=== PATIENT | female | born 1995 | race Caucasian/White ===

== ENCOUNTER 2020-05-21 15:04 | Inpatient (IN) | payer MEDICARE, MEDICAID ==
[~2020-05-21] VITALS: Ht 165.1 cm; Wt 46.0 kg
--- NOTE | 2020-05-21 15:05 | NUR ---
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
--- NOTE | 2020-05-21 15:30 | NUR ---
pt altered and moaning. dry-heaving and gagging intermittently, no vomiting
[2020-05-21 15:37] LABS: MEAN CORPUSCULAR HEMOGLOBIN 27.5 pg (27.0-34.8); MEAN CORPUSCULAR HGB CONC 30.5 g/dL (32.4-35.8); MEAN PLATELET VOLUME 11.7 fL (7.4-10.4); PLATELET COUNT 406 x10^3/uL (130-400); RED BLOOD COUNT 3.88 x10^6/uL (3.82-5.3); RED CELL DISTRIBUTION WIDTH 13.8 % (9.6-15.2)
[2020-05-21 15:41] LABS: PH, VENOUS 6.804 pH (7.320-7.420)
[2020-05-21 15:43] LABS: MD YES
[2020-05-21 15:46] LABS: ALANINE AMINOTRANSFERASE 20 U/L (12-78); ALBUMIN 1.9 g/dL (3.4-5.0); CHLORIDE 106 mmol/L (98-107); CREATININE 2.41 mg/dL (0.55-1.02)
[2020-05-21 15:49] LABS: ALKALINE PHOSPHATASE 138 U/L (45-117); ANION GAP 25 mmol/L (5-15); BILIRUBIN,TOTAL 0.3 mg/dL (0.2-1.0); TOTAL PROTEIN 5.1 g/dL (6.4-8.2)
--- NOTE | 2020-05-21 15:53 | NUR ---
Dr Ag at bedside for eval
[2020-05-21 15:59] LABS: ACETONE, SERUM Large (80mg/dL) (Negative)
[2020-05-21] MEDS ORDERED: LABETALOL 5MG/ML, 20ML IVPush PRN ×2 (16:00→22:00)
[2020-05-21] MEDS ORDERED: PANTOPRAZOLE 40 MG IV IVPush SCH (16:00)
[2020-05-21] MEDS ORDERED: PROMETHAZINE 25 MG/ML, 1ML IM PRN (16:00)
[2020-05-21] MEDS ORDERED: PANTOPRAZOLE 40 MG IV ONE (16:23)
[2020-05-21] MEDS ORDERED: ONDANSETRON 2MG/ML, 2ML ONE (16:23)
[2020-05-21] MEDS ORDERED: METRONIDAZOLE PMX 500MG/100ML 100 ML ONE (16:23)
[2020-05-21 16:27] LABS: BAND#(MANUAL) 5.05 x10^3/uL; BANDS%(MANUAL) 12 % (0-7); LYMPH#(MANUAL) 1.68 x10^3/uL (1-3.4); LYMPHS% (MANUAL) 4 % (22-44); METAMYELOCYTES# (MANUAL) 1.26 x10^3/uL (0-0); METAMYELOCYTES% (MANUAL) 3 % (0-1); MONOS#(MANUAL) 1.26 x10^3/uL (0.3-2.7); MONOS% (MANUAL) 3 % (2-9); MYELOCYTES# (MANUAL) 0.42 x10^3/uL (0-0); MYELOCYTES% (MANUAL) 1 % (0-0); SEG#(MANUAL) 32.42 x10^3/uL (1.8-6.8); SEGS% (MANUAL) 77 % (42-75)
--- NOTE | 2020-05-21 16:30 | NUR ---
multiple attempts have been made at bedside by multiple staff members for lab draw as well as peripheral IV placement no vomiting
[2020-05-21 16:31] LABS: ANISOCYTOSIS 1+
[2020-05-21] MEDS: ONDANSETRON 2MG/ML, 2ML IV PRN ×2 (16:32→20:40)
[2020-05-21 16:33] LABS: <PLATELET ESTIMATE> INCREASED
[2020-05-21] MEDS: METRONIDAZOLE PMX 500MG/100ML 100 ML IV SCH ×2 (16:35→21:17)
[2020-05-21 16:38] LABS: LARGE PLATELETS 1+; PMNS WITH VACUOLES 1+
[2020-05-21 16:48] LABS: PAPPENHEIMER BODIES 1+
--- NOTE | 2020-05-21 16:48 | NUR ---
Radiologist at bedside for PICC placement
[2020-05-21 17:02] LABS: FREE T4 (FREE THYROXINE) 0.57 ng/dL (0.76-1.46)
--- NOTE | 2020-05-21 17:05 | NUR ---
post placement x-ray has bene to bedside. PIC line ok to use per Dr. Fritz at bedside
[2020-05-21] MEDS: REGULAR INSULIN 100 UNITS in SODIUM CHLORIDE 0.9% 99 ML IV PRN (17:19)
--- NOTE | 2020-05-21 17:21 | NUR ---
insulin gtt has been initiated per order
--- NOTE | 2020-05-21 17:21 | NUR ---
pt mother at bedside
--- NOTE | 2020-05-21 17:27 | NUR ---
admit orders have been recieved with bed assignment, attempting to call report
[2020-05-21 17:42] LABS: ESTIMATED AVERAGE GLUCOSE 355 mg/dL (0-126)
--- NOTE | 2020-05-21 17:42 | NUR ---
flagyl infusing on admit
--- NOTE | 2020-05-21 17:43 | NUR ---
report has been called to Kamille BRANDT pt to [facility] via umer with RNgisele and director cardiac
[2020-05-21] MEDS ORDERED: SODIUM BICARBONATE 1 MEQ/ML, 50ML VIAL IVPush ONE (18:00)
[2020-05-21 18:38] VITALS: BP 148/91
[2020-05-21] MEDS: ESOMEPRAZOLE 40 MG IV IVPush SCH (19:54)
[2020-05-21] MEDS: NYSTATIN 500,000 UNITS/5 ML UDC PO SCH ×2 (20:19→20:22)
[2020-05-21] MEDS: ERGOCALCIFEROL 50,000 UNIT CAPSULE PO SCH (20:19)
[2020-05-21] MEDS: SODIUM CHLORIDE 0.9% 1,000 ML IV SCH (20:19)
[2020-05-21] MEDS: D5%-0.45NACL+KCL 20MEQ 1,000 ML IV SCH (20:19)
[2020-05-21 20:31] LABS: ANION GAP 22 mmol/L (5-15); CALCIUM 7.2 mg/dL (8.5-10.1); CHLORIDE 112 mmol/L (98-107); CREATININE 2.69 mg/dL (0.55-1.02)
[2020-05-21] MEDS ORDERED: POTASSIUM CHLORIDE 40 MEQ in SODIUM CHLORIDE 0.9% 100 ML IV ONE (21:00)
[2020-05-21] MEDS ORDERED: SODIUM CHLORIDE 0.9% 1,000 ML IV ONE ×2 (22:00→23:00)
[2020-05-22] MEDS: SODIUM CHLORIDE 0.9% 1,000 ML IV SCH (00:16)
[2020-05-22 00:45] LABS: CALCIUM 6.8 mg/dL (8.5-10.1); CHLORIDE 124 mmol/L (98-107); CREATININE 2.29 mg/dL (0.55-1.02)
[2020-05-22 00:52] LABS: ANION GAP 15 mmol/L (5-15)
[2020-05-22] MEDS: D5%-0.45NACL+KCL 20MEQ 1,000 ML IV SCH ×2 (01:12→04:47)
[2020-05-22] MEDS ORDERED: POTASSIUM CHLORIDE 40 MEQ in SODIUM CHLORIDE 0.9% 100 ML IV ONE ×2 (01:30→05:30)
[2020-05-22] MEDS: REGULAR INSULIN 100 UNITS in SODIUM CHLORIDE 0.9% 99 ML IV PRN ×2 (04:23→22:44)
[2020-05-22 04:34] LABS: CALCIUM 7.4 mg/dL (8.5-10.1); CHLORIDE 128 mmol/L (98-107); CREATININE 2.47 mg/dL (0.55-1.02)
[2020-05-22 04:43] LABS: ANION GAP 9 mmol/L (5-15)
[2020-05-22] MEDS: METRONIDAZOLE PMX 500MG/100ML 100 ML IV SCH ×4 (04:47→21:39)
[2020-05-22] MEDS ORDERED: POTASSIUM PHOSPHATE 44 MEQ in SODIUM CHLORIDE 0.9% 500 ML IV ONE (06:30)
[2020-05-22] MEDS ORDERED: MAGNESIUM SULFATE PMX 2GM/50ML 50 ML IV ONE (06:30)
[2020-05-22] MEDS: ESOMEPRAZOLE 40 MG IV IVPush SCH ×2 (06:32→17:57)
[2020-05-22] MEDS: NYSTATIN 500,000 UNITS/5 ML UDC PO SCH ×4 (06:33→20:17)
[2020-05-22] MEDS: ONDANSETRON 2MG/ML, 2ML IV PRN (08:09)
[2020-05-22 08:55] LABS: MEAN CORPUSCULAR HEMOGLOBIN 28.2 pg (27.0-34.8); MEAN CORPUSCULAR HGB CONC 34.3 g/dL (32.4-35.8); MEAN PLATELET VOLUME 10.6 fL (7.4-10.4); PLATELET COUNT 305 x10^3/uL (130-400); RED BLOOD COUNT 3.27 x10^6/uL (3.82-5.3); RED CELL DISTRIBUTION WIDTH 13.7 % (9.6-15.2)
[2020-05-22] MEDS ORDERED: CHOLESTYRAMINE LIGHT 4GM PACKET PO SCH (09:00)
[2020-05-22] MEDS ORDERED: THIAMINE 200 MG in SODIUM CHLORIDE 0.9% 50 ML IV SCH (09:00)
[2020-05-22 09:06] LABS: ANION GAP 7 mmol/L (5-15); CALCIUM 7.6 mg/dL (8.5-10.1); CHLORIDE 130 mmol/L (98-107); CREATININE 2.35 mg/dL (0.55-1.02)
[2020-05-22 09:28] LABS: MD YES
[2020-05-22 09:29] LABS: BAND#(MANUAL) 3.56 x10^3/uL; BANDS%(MANUAL) 14 % (0-7); LYMPH#(MANUAL) 1.78 x10^3/uL (1-3.4); LYMPHS% (MANUAL) 7 % (22-44); MONOS#(MANUAL) 1.27 x10^3/uL (0.3-2.7); MONOS% (MANUAL) 5 % (2-9); SEGS% (MANUAL) 74 % (42-75)
[2020-05-22 09:30] LABS: <PLATELET ESTIMATE> ADEQUATE; <RBC MORPHOLOGY> NORMAL; LARGE PLATELETS 1+
[2020-05-22] MEDS ORDERED: POTASSIUM CHLORIDE 20 MEQ PACKET ONE (09:38)
[2020-05-22] MEDS ORDERED: LORazepam 2 MG/ML, 1ML ONE (10:09)
[2020-05-22] MEDS ORDERED: TPN PER PHARMACY MC PRN (10:30)
[2020-05-22] MEDS ORDERED: LORazepam 2 MG/ML, 1ML IVPush ONE (10:30)
[2020-05-22] MEDS: D5%-0.45% NACL 1,000 ML IV SCH ×2 (11:55→20:17)
[2020-05-22] MEDS: KSCALE TO 4.5 IV SCH ×2 (12:05→18:00)
[2020-05-22 13:33] LABS: ANION GAP 7 mmol/L (5-15); CALCIUM 7.3 mg/dL (8.5-10.1); CHLORIDE 129 mmol/L (98-107); CREATININE 2.11 mg/dL (0.55-1.02)
[2020-05-22 15:16] LABS: MICROSCOPIC INDICATED
[2020-05-22 15:40] LABS: OCCULT BLOOD POSITIVE (NEGATIVE)
[2020-05-22] MEDS: CEFTRIAXONE PMX 2GM/50ML 50 ML IVPB SCH (16:29)
[2020-05-22] MEDS ORDERED: SMOF TPN IV SCH (17:00)
[2020-05-22] MEDS ORDERED: DEXTROSE 10% 500 ML IV PRN (17:00)
[2020-05-22] MEDS ORDERED: [UNRECOGNIZED DRUG - OTHER] IV SCH (17:00)
[2020-05-22] MEDS ORDERED: AMINO ACID 10% IV SCH (17:00)
[2020-05-22] MEDS ORDERED: FAT EMUL IV SCH (17:00)
[2020-05-22] MEDS ORDERED: DEXTROSE 70% IV SCH (17:00)
[2020-05-22] MEDS ORDERED: DEXTROSE 50%, 50ML SYRINGE IVPush PRN (17:00)
[2020-05-22] MEDS: FILTER, DISP 1.2 MICRON FOR TPN/PVN IV PRN (17:56)
[2020-05-22] MEDS: MORPHINE SULFATE 4 MG/ML, 1ML IVPush PRN (17:57)
[2020-05-22 19:40] LABS: ANION GAP 8 mmol/L (5-15); CALCIUM 7.1 mg/dL (8.5-10.1); CHLORIDE 128 mmol/L (98-107); CREATININE 2.17 mg/dL (0.55-1.02)
[2020-05-23 00:24] LABS: ANION GAP 7 mmol/L (5-15); CHLORIDE 126 mmol/L (98-107)
[2020-05-23 00:25] LABS: CREATININE 2.16 mg/dL (0.55-1.02)
[2020-05-23] MEDS: KSCALE TO 4.5 IV SCH ×4 (00:58→19:00)
[2020-05-23] MEDS ORDERED: POTASSIUM CHLORIDE 40 MEQ in SODIUM CHLORIDE 0.9% 100 ML IV ONE ×2 (01:00→11:00)
[2020-05-23] MEDS ORDERED: morphine SULFATE 10 MG/ML, 1ML ONE (01:24)
[2020-05-23] MEDS: D5%-0.45% NACL 1,000 ML IV SCH (04:31)
[2020-05-23 04:47] LABS: BASOPHILS % (AUTO) 0 % (0-1); EOSINOPHILS % (AUTO) 0 % (1-7); LYMPHOCYTES % (AUTO) 13 % (22-44); MEAN CORPUSCULAR HGB CONC 34.4 g/dL (32.4-35.8); MEAN PLATELET VOLUME 10.2 fL (7.4-10.4); MONOCYTES % (AUTO) 6 % (2-9); NEUTROPHILS % (AUTO) 81 % (42-75); PLATELET COUNT 252 x10^3/uL (130-400); RED BLOOD COUNT 3.05 x10^6/uL (3.82-5.3); RED CELL DISTRIBUTION WIDTH 13.6 % (9.6-15.2)
[2020-05-23 04:53] LABS: ANION GAP 7 mmol/L (5-15); CALCIUM 7.2 mg/dL (8.5-10.1); CHLORIDE 125 mmol/L (98-107); CREATININE 1.98 mg/dL (0.55-1.02)
[2020-05-23] MEDS: ESOMEPRAZOLE 40 MG IV IVPush SCH ×2 (05:51→17:16)
[2020-05-23] MEDS: NYSTATIN 500,000 UNITS/5 ML UDC PO SCH ×4 (05:51→21:37)
[2020-05-23 05:53] LABS: MD SCAN
[2020-05-23] MEDS: METRONIDAZOLE PMX 500MG/100ML 100 ML IV SCH ×4 (05:55→21:38)
[2020-05-23] MEDS ORDERED: POTASSIUM PHOSPHATE 44 MEQ in SODIUM CHLORIDE 0.9% 500 ML IV ONE (07:00)
[2020-05-23 09:12] LABS: ALANINE AMINOTRANSFERASE 16 U/L (12-78); ALBUMIN 1.7 g/dL (3.4-5.0); ANION GAP 11 mmol/L (5-15); CHLORIDE 124 mmol/L (98-107); CREATININE 1.96 mg/dL (0.55-1.02)
[2020-05-23 09:17] LABS: ALKALINE PHOSPHATASE 90 U/L (45-117); BILIRUBIN,TOTAL 0.2 mg/dL (0.2-1.0); PREALBUMIN 9.9 mg/dL (20.0-40.0); TOTAL PROTEIN 4.4 g/dL (6.4-8.2); TRIGLYCERIDES 65 mg/dL (50-200)
[2020-05-23] MEDS ORDERED: D5%-0.45% NACL 1,000 ML IV SCH (09:30)
[2020-05-23 13:36] LABS: ANION GAP 8 mmol/L (5-15); CALCIUM 6.7 mg/dL (8.5-10.1); CHLORIDE 125 mmol/L (98-107); CREATININE 1.89 mg/dL (0.55-1.02)
[2020-05-23] MEDS ORDERED: POTASSIUM CHLORIDE PMX 100 ML IV ONE ×2 (14:30→20:00)
[2020-05-23] MEDS ORDERED: NALOXONE 1 MG/ML, 2ML ONE (14:38)
[2020-05-23] MEDS ORDERED: FLUMAZENIL 0.1 MG/1 ML, 5ML ONE (14:38)
[2020-05-23] MEDS ORDERED: MIDAZOLAM 1 MG/ML, 5ML ONE (14:38)
[2020-05-23] MEDS ORDERED: FENTANYL PF 100 MCG/2ML ONE (14:38)
[2020-05-23] MEDS ORDERED: LIDOCAINE 1%, 20ML ONE (14:43)
[2020-05-23] MEDS: HEPARIN 5,000 UNITS/ML, 1ML SQ SCH ×2 (15:57→21:38)
[2020-05-23] MEDS: REGULAR INSULIN 100 UNITS in SODIUM CHLORIDE 0.9% 99 ML IV PRN (16:41)
[2020-05-23] MEDS ORDERED: [UNRECOGNIZED DRUG - OTHER] IV SCH (17:00)
[2020-05-23] MEDS ORDERED: SMOF TPN IV SCH (17:00)
[2020-05-23] MEDS ORDERED: DEXTROSE 70% IV SCH (17:00)
[2020-05-23] MEDS ORDERED: FAT EMUL IV SCH (17:00)
[2020-05-23] MEDS ORDERED: AMINO ACID 10% IV SCH (17:00)
[2020-05-23] MEDS: FILTER, DISP 1.2 MICRON FOR TPN/PVN IV PRN (17:15)
[2020-05-23] MEDS: CEFTRIAXONE PMX 2GM/50ML 50 ML IVPB SCH (17:16)
[2020-05-23 19:23] LABS: ANION GAP 10 mmol/L (5-15); CALCIUM 6.8 mg/dL (8.5-10.1); CHLORIDE 126 mmol/L (98-107)
[2020-05-23] MEDS ORDERED: MIRT15TA94 PO (21:01)
[2020-05-23] MEDS ORDERED: MIRTAZAPINE 15 MG TABLET PO SCH (21:30)
[2020-05-24] MEDS: KSCALE TO 4.5 IV SCH ×4 (01:00→19:00)
[2020-05-24 01:31] LABS: ANION GAP 9 mmol/L (5-15); CHLORIDE 125 mmol/L (98-107); CREATININE 1.51 mg/dL (0.55-1.02)
[2020-05-24] MEDS ORDERED: POTASSIUM PHOSPHATE 22 MEQ in SODIUM CHLORIDE 0.9% 500 ML IV ONE (02:00)
[2020-05-24] MEDS: ONDANSETRON 2MG/ML, 2ML IV PRN ×3 (02:01→20:33)
[2020-05-24] MEDS ORDERED: POTASSIUM CHLORIDE PMX 100 ML IV ONE ×2 (02:30→14:00)
[2020-05-24] MEDS: METRONIDAZOLE PMX 500MG/100ML 100 ML IV SCH ×4 (04:53→21:59)
[2020-05-24] MEDS: HEPARIN 5,000 UNITS/ML, 1ML SQ SCH ×2 (06:00→16:14)
[2020-05-24] MEDS: NYSTATIN 500,000 UNITS/5 ML UDC PO SCH ×4 (06:00→21:59)
[2020-05-24] MEDS: ESOMEPRAZOLE 40 MG IV IVPush SCH ×2 (06:00→17:28)
[2020-05-24 06:44] LABS: BASOPHILS % (AUTO) 0 % (0-1); EOSINOPHILS % (AUTO) 1 % (1-7); LYMPHOCYTES % (AUTO) 32 % (22-44); MEAN CORPUSCULAR HEMOGLOBIN 28.3 pg (27.0-34.8); MEAN CORPUSCULAR HGB CONC 34.1 g/dL (32.4-35.8); MEAN PLATELET VOLUME 10.3 fL (7.4-10.4); MONOCYTES % (AUTO) 7 % (2-9); NEUTROPHILS % (AUTO) 60 % (42-75); PLATELET COUNT 220 x10^3/uL (130-400); RED BLOOD COUNT 2.85 x10^6/uL (3.82-5.3)
[2020-05-24 06:45] LABS: MD NO
[2020-05-24 06:54] LABS: ANION GAP 12 mmol/L (5-15); CALCIUM 7.1 mg/dL (8.5-10.1); CHLORIDE 121 mmol/L (98-107); CREATININE 1.47 mg/dL (0.55-1.02)
[2020-05-24 11:36] LABS: ACETONE, SERUM Small (20mg/dL) (Negative)
[2020-05-24 13:47] LABS: ANION GAP 11 mmol/L (5-15); CALCIUM 7.2 mg/dL (8.5-10.1); CHLORIDE 120 mmol/L (98-107); CREATININE 1.59 mg/dL (0.55-1.02)
[2020-05-24] MEDS ORDERED: MAGNESIUM SULFATE PMX 2GM/50ML 50 ML IV ONE (14:30)
[2020-05-24] MEDS: REGULAR INSULIN 100 UNITS in SODIUM CHLORIDE 0.9% 99 ML IV PRN (16:15)
[2020-05-24] MEDS ORDERED: [UNRECOGNIZED DRUG - OTHER] IV SCH (17:00)
[2020-05-24] MEDS ORDERED: FAT EMUL IV SCH (17:00)
[2020-05-24] MEDS ORDERED: AMINO ACID 10% IV SCH (17:00)
[2020-05-24] MEDS ORDERED: FILTER, DISP 1.2 MICRON FOR TPN/PVN IV PRN (17:00)
[2020-05-24] MEDS ORDERED: SMOF TPN IV SCH (17:00)
[2020-05-24] MEDS ORDERED: DEXTROSE 70% IV SCH (17:00)
[2020-05-24] MEDS: CEFTRIAXONE PMX 2GM/50ML 50 ML IVPB SCH (17:28)
[2020-05-24 19:01] LABS: ANION GAP 9 mmol/L (5-15); CALCIUM 7.4 mg/dL (8.5-10.1); CHLORIDE 119 mmol/L (98-107); CREATININE 1.35 mg/dL (0.55-1.02)
[2020-05-24] MEDS: SODIUM BICARBONATE 650 MG TABLET PO SCH (21:59)
[2020-05-24] MEDS: MIRTAZAPINE 30 MG TAB.RAPDIS PO PRN (22:01)
[2020-05-25] MEDS: HEPARIN 5,000 UNITS/ML, 1ML SQ SCH ×3 (00:57→17:38)
[2020-05-25] MEDS: KSCALE TO 4.5 IV SCH ×2 (01:00→07:00)
[2020-05-25 02:01] LABS: ANION GAP 8 mmol/L (5-15); CALCIUM 7.6 mg/dL (8.5-10.1); CHLORIDE 120 mmol/L (98-107); CREATININE 1.39 mg/dL (0.55-1.02)
[2020-05-25] MEDS: METRONIDAZOLE PMX 500MG/100ML 100 ML IV SCH ×2 (04:02→09:15)
[2020-05-25] MEDS: NYSTATIN 500,000 UNITS/5 ML UDC PO SCH ×4 (05:21→19:53)
[2020-05-25] MEDS: ESOMEPRAZOLE 40 MG IV IVPush SCH ×2 (05:21→17:58)
[2020-05-25] MEDS: MORPHINE SULFATE 4 MG/ML, 1ML IVPush PRN (05:22)
[2020-05-25 06:22] LABS: BASOPHILS % (AUTO) 0 % (0-1); EOSINOPHILS % (AUTO) 1 % (1-7); LYMPHOCYTES % (AUTO) 35 % (22-44); MEAN CORPUSCULAR HEMOGLOBIN 28.6 pg (27.0-34.8); MEAN PLATELET VOLUME 10.2 fL (7.4-10.4); MONOCYTES % (AUTO) 7 % (2-9); NEUTROPHILS % (AUTO) 56 % (42-75); PLATELET COUNT 236 x10^3/uL (130-400); RED BLOOD COUNT 3.02 x10^6/uL (3.82-5.3); RED CELL DISTRIBUTION WIDTH 14.8 % (9.6-15.2)
[2020-05-25 06:42] LABS: ACETONE, SERUM Moderate(40mg/dL) (Negative); MD SCAN
[2020-05-25] MEDS ORDERED: AMLODIPINE 5 MG TABLET PO SCH (09:00)
[2020-05-25] MEDS: SODIUM BICARBONATE 650 MG TABLET PO SCH ×2 (09:11→19:54)
[2020-05-25] MEDS ORDERED: INSULIN REGULAR HIGH DOSE Q6H X 48HRS SQ-INSULIN SCH ×2 (10:00→20:00)
[2020-05-25] MEDS ORDERED: DEXTROSE 4 GM TAB.CHEW PO PRN (10:00)
[2020-05-25] MEDS ORDERED: INSULIN GLARGINE 100 UNITS/ML, PEN SQ-INSULIN ONE (10:00)
[2020-05-25] MEDS ORDERED: GLUCAGON 1 MG IM PRN (10:00)
[2020-05-25] MEDS: INSULIN LISPRO 100 UNITS/ML, PEN SQ-INSULIN SCH ×4 (10:10→22:00)
[2020-05-25] MEDS ORDERED: CALCIUM GLUCONATE 13.8 MEQ in SODIUM CHLORIDE 0.9% 100 ML IV ONE (11:00)
[2020-05-25] MEDS: ONDANSETRON 2MG/ML, 2ML IV PRN (11:19)
[2020-05-25] MEDS ORDERED: AMINO ACID 10% IV SCH (17:00)
[2020-05-25] MEDS ORDERED: FAT EMUL IV SCH (17:00)
[2020-05-25] MEDS ORDERED: [UNRECOGNIZED DRUG - OTHER] IV SCH (17:00)
[2020-05-25] MEDS ORDERED: FILTER, DISP 1.2 MICRON FOR TPN/PVN IV PRN (17:00)
[2020-05-25] MEDS ORDERED: DEXTROSE 70% IV SCH (17:00)
[2020-05-25] MEDS ORDERED: SMOF TPN IV SCH (17:00)
[2020-05-25] MEDS ORDERED: cloniDINE 0.1MG PATCH TD SCH (17:00)
[2020-05-25] MEDS ORDERED: INSULIN REGULAR 100 UNITS/ML, 3ML VIAL SQ-INSULIN ONE (18:00)
[2020-05-25] MEDS: PANCRELIPASE 24,000 CAPSULE.DR PO SCH (18:16)
[2020-05-25] MEDS: SODIUM CHLORIDE FLUSH 10ML SYR IVF SCH (19:54)
[2020-05-25 21:21] LABS: ANION GAP 10 mmol/L (5-15); CALCIUM 8.3 mg/dL (8.5-10.1); CHLORIDE 111 mmol/L (98-107); CREATININE 1.71 mg/dL (0.55-1.02)
[2020-05-25] MEDS ORDERED: SODIUM CHLORIDE 0.9% 1,000ML IVBOLUS ONE ×2 (21:30)
[2020-05-25] MEDS: MIRTAZAPINE 30 MG TAB.RAPDIS PO PRN (22:34)
[2020-05-26] MEDS: ONDANSETRON 2MG/ML, 2ML IV PRN (00:47)
[2020-05-26] MEDS: INSULIN LISPRO 100 UNITS/ML, PEN SQ-INSULIN SCH ×7 (01:54→23:43)
[2020-05-26] MEDS: NYSTATIN 500,000 UNITS/5 ML UDC PO SCH ×4 (06:11→20:32)
[2020-05-26] MEDS: ESOMEPRAZOLE 40 MG IV IVPush SCH ×2 (06:11→17:05)
[2020-05-26 06:40] LABS: BASOPHILS % (AUTO) 1 % (0-1); EOSINOPHILS % (AUTO) 1 % (1-7); LYMPHOCYTES % (AUTO) 24 % (22-44); MEAN CORPUSCULAR HEMOGLOBIN 28.3 pg (27.0-34.8); MEAN CORPUSCULAR HGB CONC 34.2 g/dL (32.4-35.8); MEAN PLATELET VOLUME 10.9 fL (7.4-10.4); MONOCYTES % (AUTO) 8 % (2-9); NEUTROPHILS % (AUTO) 66 % (42-75); PLATELET COUNT 245 x10^3/uL (130-400); RED BLOOD COUNT 2.76 x10^6/uL (3.82-5.3); RED CELL DISTRIBUTION WIDTH 15.2 % (9.6-15.2)
[2020-05-26 07:13] LABS: MD SCAN
[2020-05-26 07:32] LABS: ANION GAP 7 mmol/L (5-15); CALCIUM 7.7 mg/dL (8.5-10.1); CHLORIDE 117 mmol/L (98-107); CREATININE 1.45 mg/dL (0.55-1.02)
[2020-05-26] MEDS: PANCRELIPASE 24,000 CAPSULE.DR PO SCH ×3 (09:05→17:04)
[2020-05-26] MEDS: HEPARIN 5,000 UNITS/ML, 1ML SQ SCH ×3 (09:05→17:05)
[2020-05-26] MEDS: SODIUM CHLORIDE FLUSH 10ML SYR IVF SCH ×2 (09:06→20:32)
[2020-05-26] MEDS: SODIUM BICARBONATE 650 MG TABLET PO SCH ×2 (09:06→20:31)
[2020-05-26] MEDS ORDERED: CALCIUM GLUCONATE 13.8 MEQ in SODIUM CHLORIDE 0.9% 100 ML IV ONE (10:00)
[2020-05-26] MEDS: IRON SUCROSE COMPLEX 100MG/5ML IV SCH (12:34)
[2020-05-26] MEDS ORDERED: [UNRECOGNIZED DRUG - OTHER] IV SCH (17:00)
[2020-05-26] MEDS ORDERED: FAT EMUL IV SCH (17:00)
[2020-05-26] MEDS ORDERED: SMOF TPN IV SCH (17:00)
[2020-05-26] MEDS ORDERED: DEXTROSE 70% IV SCH (17:00)
[2020-05-26] MEDS ORDERED: AMINO ACID 10% IV SCH (17:00)
[2020-05-26] MEDS: FILTER, DISP 1.2 MICRON FOR TPN/PVN IV PRN (17:05)
[2020-05-26 20:16] VITALS: BP 116/81
[2020-05-26] MEDS: MIRTAZAPINE 30 MG TAB.RAPDIS PO PRN (22:17)
[2020-05-27] MEDS: HEPARIN 5,000 UNITS/ML, 1ML SQ SCH ×4 (00:20→23:17)
[2020-05-27 01:12] VITALS: BP 118/82
[2020-05-27] MEDS: INSULIN LISPRO 100 UNITS/ML, PEN SQ-INSULIN SCH ×6 (03:00→23:18)
[2020-05-27] MEDS: ESOMEPRAZOLE 40 MG IV IVPush SCH ×2 (05:07→17:31)
[2020-05-27] MEDS: NYSTATIN 500,000 UNITS/5 ML UDC PO SCH ×4 (05:07→20:48)
[2020-05-27 05:29] LABS: MEAN CORPUSCULAR HEMOGLOBIN 28.4 pg (27.0-34.8); MEAN CORPUSCULAR HGB CONC 33.6 g/dL (32.4-35.8); MEAN PLATELET VOLUME 9.8 fL (7.4-10.4); PLATELET COUNT 282 x10^3/uL (130-400); RED BLOOD COUNT 2.75 x10^6/uL (3.82-5.3); RED CELL DISTRIBUTION WIDTH 15.2 % (9.6-15.2)
[2020-05-27 05:39] LABS: ANION GAP 5 mmol/L (5-15); CALCIUM 8.1 mg/dL (8.5-10.1); CHLORIDE 115 mmol/L (98-107); CREATININE 1.54 mg/dL (0.55-1.02)
[2020-05-27 05:55] LABS: MD YES
[2020-05-27 05:57] LABS: BAND#(MANUAL) 0.46 x10^3/uL; BANDS%(MANUAL) 3 % (0-7); EOS#(MANUAL) 0.46 x10^3/uL (0.0-0.4); EOS% (MANUAL) 3 % (1-7); LYMPH#(MANUAL) 6.08 x10^3/uL (1-3.4); LYMPHS% (MANUAL) 40 % (22-44); METAMYELOCYTES% (MANUAL) 2 % (0-1); MONOS#(MANUAL) 0.46 x10^3/uL (0.3-2.7); MONOS% (MANUAL) 3 % (2-9); MYELOCYTES% (MANUAL) 2 % (0-0); POLYCHROMASIA 1+; SEG#(MANUAL) 7.14 x10^3/uL (1.8-6.8); SEGS% (MANUAL) 47 % (42-75)
[2020-05-27 05:58] LABS: SMUDGE CELLS 1+
[2020-05-27 06:01] LABS: OVALOCYTES 1+
[2020-05-27 06:03] LABS: <PLATELET ESTIMATE> ADEQUATE; <PLT MORPHOLOGY> NORMAL PLT MORPH
[2020-05-27] MEDS: PANCRELIPASE 24,000 CAPSULE.DR PO SCH ×3 (07:25→15:47)
[2020-05-27 07:30] VITALS: BP 106/71
[2020-05-27] MEDS: SODIUM BICARBONATE 650 MG TABLET PO SCH ×2 (08:06→20:48)
[2020-05-27] MEDS: IRON SUCROSE COMPLEX 100MG/5ML IV SCH (08:06)
[2020-05-27] MEDS: SODIUM CHLORIDE FLUSH 10ML SYR IVF SCH ×2 (08:07→20:48)
[2020-05-27 13:40] VITALS: BP 109/72
[2020-05-27] MEDS ORDERED: DEXTROSE 70% IV SCH (17:00)
[2020-05-27] MEDS ORDERED: FAT EMUL IV SCH (17:00)
[2020-05-27] MEDS ORDERED: AMINO ACID 10% IV SCH (17:00)
[2020-05-27] MEDS ORDERED: SMOF TPN IV SCH (17:00)
[2020-05-27] MEDS ORDERED: [UNRECOGNIZED DRUG - OTHER] IV SCH (17:00)
[2020-05-27] MEDS: FILTER, DISP 1.2 MICRON FOR TPN/PVN IV PRN (17:37)
[2020-05-27 18:44] VITALS: BP 111/74
[2020-05-27 19:59] VITALS: BP 119/80
[2020-05-27] MEDS: MIRTAZAPINE 30 MG TAB.RAPDIS PO PRN (20:48)
[2020-05-28 02:03] VITALS: BP 116/71
[2020-05-28] MEDS: INSULIN LISPRO 100 UNITS/ML, PEN SQ-INSULIN SCH ×6 (03:00→23:00)
[2020-05-28] MEDS: NYSTATIN 500,000 UNITS/5 ML UDC PO SCH ×4 (05:27→20:45)
[2020-05-28] MEDS: ESOMEPRAZOLE 40 MG IV IVPush SCH ×2 (05:28→18:00)
[2020-05-28 05:46] LABS: MEAN CORPUSCULAR HEMOGLOBIN 28.7 pg (27.0-34.8); MEAN CORPUSCULAR HGB CONC 33.4 g/dL (32.4-35.8); MEAN PLATELET VOLUME 9.7 fL (7.4-10.4); PLATELET COUNT 370 x10^3/uL (130-400); RED BLOOD COUNT 2.83 x10^6/uL (3.82-5.3)
[2020-05-28 05:55] LABS: ANION GAP 8 mmol/L (5-15); CALCIUM 8.4 mg/dL (8.5-10.1); CHLORIDE 109 mmol/L (98-107); CREATININE 1.57 mg/dL (0.55-1.02)
[2020-05-28 06:18] LABS: MD YES
[2020-05-28 06:21] LABS: BAND#(MANUAL) 0.18 x10^3/uL; BANDS%(MANUAL) 1 % (0-7); LYMPH#(MANUAL) 4.12 x10^3/uL (1-3.4); LYMPHS% (MANUAL) 23 % (22-44); METAMYELOCYTES# (MANUAL) 1.25 x10^3/uL (0-0); METAMYELOCYTES% (MANUAL) 7 % (0-1); MONOS% (MANUAL) 5 % (2-9); SEG#(MANUAL) 11.46 x10^3/uL (1.8-6.8); SEGS% (MANUAL) 64 % (42-75)
[2020-05-28 06:22] LABS: <PLATELET ESTIMATE> ADEQUATE; <PLT MORPHOLOGY> NORMAL PLT MORPH; ANISOCYTOSIS 1+; POLYCHROMASIA 1+
[2020-05-28 06:24] LABS: OVALOCYTES 1+
[2020-05-28 07:09] VITALS: BP 104/71
[2020-05-28] MEDS: SODIUM BICARBONATE 650 MG TABLET PO SCH ×2 (07:51→20:45)
[2020-05-28] MEDS: PANCRELIPASE 24,000 CAPSULE.DR PO SCH ×3 (07:51→16:10)
[2020-05-28] MEDS: HEPARIN 5,000 UNITS/ML, 1ML SQ SCH ×3 (07:51→23:45)
[2020-05-28] MEDS: SODIUM CHLORIDE FLUSH 10ML SYR IVF SCH ×2 (07:52→20:46)
[2020-05-28] MEDS: IRON SUCROSE COMPLEX 100MG/5ML IV SCH (07:52)
[2020-05-28] MEDS ORDERED: INSULIN REGULAR HIGH DOSE QDAY SQ-INSULIN SCH (09:00)
[2020-05-28] MEDS: LOPERAMIDE 2 MG CAPSULE PO PRN ×2 (09:22→15:05)
[2020-05-28] MEDS ORDERED: INSULIN LISPRO 100 UNITS/ML, PEN SQ-INSULIN STA ×2 (12:38→13:04)
[2020-05-28 12:50] VITALS: BP 114/76
[2020-05-28] MEDS: ACETAMINOPHEN 325 MG TABLET PO PRN (13:13)
[2020-05-28] MEDS ORDERED: DEXTROSE 70% IV SCH (17:00)
[2020-05-28] MEDS ORDERED: [UNRECOGNIZED DRUG - OTHER] IV SCH (17:00)
[2020-05-28] MEDS ORDERED: AMINO ACID 10% IV SCH (17:00)
[2020-05-28] MEDS ORDERED: FAT EMUL IV SCH (17:00)
[2020-05-28] MEDS ORDERED: SMOF TPN IV SCH (17:00)
[2020-05-28] MEDS: ERGOCALCIFEROL 50,000 UNIT CAPSULE PO SCH (18:38)
[2020-05-28] MEDS: MIRTAZAPINE 30 MG TAB.RAPDIS PO PRN (20:45)
[2020-05-28 21:15] VITALS: BP 116/77
[2020-05-28 22:01] VITALS: BP 106/72
[2020-05-29 00:59] VITALS: BP 108/72
[2020-05-29 02:28] VITALS: BP 108/72
[2020-05-29] MEDS: INSULIN LISPRO 100 UNITS/ML, PEN SQ-INSULIN SCH ×6 (03:00→22:51)
[2020-05-29] MEDS: NYSTATIN 500,000 UNITS/5 ML UDC PO SCH ×4 (05:11→20:15)
[2020-05-29 05:34] LABS: MEAN CORPUSCULAR HEMOGLOBIN 29.8 pg (27.0-34.8); MEAN CORPUSCULAR HGB CONC 33.7 g/dL (32.4-35.8); MEAN PLATELET VOLUME 9.9 fL (7.4-10.4); PLATELET COUNT 450 x10^3/uL (130-400); RED BLOOD COUNT 2.81 x10^6/uL (3.82-5.3); RED CELL DISTRIBUTION WIDTH 15.6 % (9.6-15.2)
[2020-05-29 05:42] LABS: ALANINE AMINOTRANSFERASE 26 U/L (12-78); ANION GAP 9 mmol/L (5-15); CALCIUM 8.7 mg/dL (8.5-10.1); CHLORIDE 110 mmol/L (98-107); CREATININE 1.85 mg/dL (0.55-1.02); TRIGLYCERIDES 350 mg/dL (50-200)
[2020-05-29 05:47] LABS: ALKALINE PHOSPHATASE 99 U/L (45-117); BILIRUBIN,TOTAL 0.2 mg/dL (0.2-1.0); TOTAL PROTEIN 5.8 g/dL (6.4-8.2)
[2020-05-29 06:04] LABS: MD YES
[2020-05-29 06:06] LABS: ANISOCYTOSIS 1+; LYMPH#(MANUAL) 7.48 x10^3/uL (1-3.4); LYMPHS% (MANUAL) 29 % (22-44); METAMYELOCYTES# (MANUAL) 1.29 x10^3/uL (0-0); METAMYELOCYTES% (MANUAL) 5 % (0-1); MONOS#(MANUAL) 2.06 x10^3/uL (0.3-2.7); MONOS% (MANUAL) 8 % (2-9); MYELOCYTES# (MANUAL) 0.77 x10^3/uL (0-0); MYELOCYTES% (MANUAL) 3 % (0-0); POLYCHROMASIA 1+; SEG#(MANUAL) 14.19 x10^3/uL (1.8-6.8); SEGS% (MANUAL) 55 % (42-75)
[2020-05-29 06:07] LABS: <PLATELET ESTIMATE> INCREASED; <PLT MORPHOLOGY> NORMAL PLT MORPH
[2020-05-29] MEDS: ESOMEPRAZOLE 40 MG IV IVPush SCH ×2 (06:18→17:39)
[2020-05-29 06:48] VITALS: BP 98/62
[2020-05-29] MEDS: HEPARIN 5,000 UNITS/ML, 1ML SQ SCH ×2 (07:55→16:23)
[2020-05-29] MEDS: PANCRELIPASE 24,000 CAPSULE.DR PO SCH ×3 (07:55→16:23)
[2020-05-29] MEDS: IRON SUCROSE COMPLEX 100MG/5ML IV SCH (07:56)
[2020-05-29] MEDS: SODIUM BICARBONATE 650 MG TABLET PO SCH ×2 (07:56→20:15)
[2020-05-29] MEDS: LOPERAMIDE 2 MG CAPSULE PO PRN ×4 (07:56→20:15)
[2020-05-29] MEDS: SODIUM CHLORIDE FLUSH 10ML SYR IVF SCH ×2 (08:00→20:15)
[2020-05-29] MEDS: ACETAMINOPHEN 325 MG TABLET PO PRN (09:56)
[2020-05-29] MEDS: INSULIN GLARGINE 100 UNITS/ML, PEN SQ-INSULIN SCH (12:29)
[2020-05-29 14:10] VITALS: BP 98/67
[2020-05-29] MEDS ORDERED: AMINO ACID 10% IV SCH ×2 (17:00)
[2020-05-29] MEDS ORDERED: FAT EMUL IV SCH ×2 (17:00)
[2020-05-29] MEDS ORDERED: DEXTROSE 70% IV SCH ×2 (17:00)
[2020-05-29] MEDS ORDERED: [UNRECOGNIZED DRUG - OTHER] IV SCH ×2 (17:00)
[2020-05-29] MEDS ORDERED: SMOF TPN IV SCH ×2 (17:00)
[2020-05-29 20:11] VITALS: BP 118/78
[2020-05-30] MEDS: HEPARIN 5,000 UNITS/ML, 1ML SQ SCH ×3 (00:33→18:40)
[2020-05-30 00:35] VITALS: BP 108/68
[2020-05-30] MEDS: INSULIN LISPRO 100 UNITS/ML, PEN SQ-INSULIN SCH ×6 (03:08→23:00)
[2020-05-30] MEDS: LOPERAMIDE 2 MG CAPSULE PO PRN ×5 (03:08→20:12)
[2020-05-30 03:43] LABS: ANION GAP 7 mmol/L (5-15); CALCIUM 8.6 mg/dL (8.5-10.1); CHLORIDE 111 mmol/L (98-107); CREATININE 1.63 mg/dL (0.55-1.02)
[2020-05-30] MEDS: NYSTATIN 500,000 UNITS/5 ML UDC PO SCH ×4 (06:26→20:12)
[2020-05-30] MEDS: ESOMEPRAZOLE 40 MG IV IVPush SCH ×2 (06:26→18:04)
[2020-05-30] MEDS: PANCRELIPASE 24,000 CAPSULE.DR PO SCH ×3 (06:26→15:32)
[2020-05-30 06:50] VITALS: BP_SYST 113; BP_SYST 121; BP_DIAS 70; BP_DIAS 73
[2020-05-30] MEDS: IRON SUCROSE COMPLEX 100MG/5ML IV SCH (08:50)
[2020-05-30] MEDS: INSULIN GLARGINE 100 UNITS/ML, PEN SQ-INSULIN SCH (08:51)
[2020-05-30] MEDS: SODIUM CHLORIDE FLUSH 10ML SYR IVF SCH ×2 (08:52→20:12)
[2020-05-30] MEDS: SODIUM BICARBONATE 650 MG TABLET PO SCH ×2 (08:52→20:12)
[2020-05-30 12:58] VITALS: BP 105/73
[2020-05-30 16:41] LABS: CLOSTRIDIUM DIFFICILE ANTIGEN NEGATIVE; CLOSTRIDIUM DIFFICILE TOXIN NEGATIVE (Negative)
[2020-05-30] MEDS ORDERED: DEXTROSE 70% IV SCH (17:00)
[2020-05-30] MEDS ORDERED: AMINO ACID 10% IV SCH (17:00)
[2020-05-30] MEDS ORDERED: SMOF TPN IV SCH (17:00)
[2020-05-30] MEDS ORDERED: [UNRECOGNIZED DRUG - OTHER] IV SCH (17:00)
[2020-05-30] MEDS ORDERED: FAT EMUL IV SCH (17:00)
[2020-05-30 19:01] VITALS: BP 96/65
[2020-05-31 01:29] VITALS: BP 113/76
[2020-05-31] MEDS: INSULIN LISPRO 100 UNITS/ML, PEN SQ-INSULIN SCH ×6 (02:47→22:54)
[2020-05-31] MEDS: LOPERAMIDE 2 MG CAPSULE PO PRN (02:48)
[2020-05-31] MEDS: HEPARIN 5,000 UNITS/ML, 1ML SQ SCH ×3 (02:48→18:44)
[2020-05-31 03:11] LABS: MEAN CORPUSCULAR HEMOGLOBIN 29.8 pg (27.0-34.8); MEAN CORPUSCULAR HGB CONC 32.6 g/dL (32.4-35.8); MEAN PLATELET VOLUME 8.9 fL (7.4-10.4); PLATELET COUNT 456 x10^3/uL (130-400); RED BLOOD COUNT 2.77 x10^6/uL (3.82-5.3); RED CELL DISTRIBUTION WIDTH 15.2 % (9.6-15.2)
[2020-05-31 03:18] LABS: ANION GAP 5 mmol/L (5-15); CALCIUM 9.1 mg/dL (8.5-10.1); CHLORIDE 113 mmol/L (98-107); CREATININE 1.58 mg/dL (0.55-1.02)
[2020-05-31 03:41] LABS: MD YES
[2020-05-31 03:44] LABS: BAND#(MANUAL) 0.41 x10^3/uL; BANDS%(MANUAL) 3 % (0-7); LYMPH#(MANUAL) 3.73 x10^3/uL (1-3.4); LYMPHS% (MANUAL) 27 % (22-44); METAMYELOCYTES# (MANUAL) 0.14 x10^3/uL (0-0); METAMYELOCYTES% (MANUAL) 1 % (0-1); MONOS% (MANUAL) 8 % (2-9); MYELOCYTES# (MANUAL) 0.14 x10^3/uL (0-0); MYELOCYTES% (MANUAL) 1 % (0-0); SEG#(MANUAL) 8.28 x10^3/uL (1.8-6.8); SEGS% (MANUAL) 60 % (42-75)
[2020-05-31 03:45] LABS: ANISOCYTOSIS 1+; OVALOCYTES 1+; PMNS WITH VACUOLES 1+; POLYCHROMASIA 1+; TOXIC GRAN 1+
[2020-05-31 03:46] LABS: <PLATELET ESTIMATE> ADEQUATE; LARGE PLATELETS 1+
[2020-05-31] MEDS: NYSTATIN 500,000 UNITS/5 ML UDC PO SCH ×4 (06:29→20:06)
[2020-05-31] MEDS: PANCRELIPASE 24,000 CAPSULE.DR PO SCH ×3 (06:29→16:29)
[2020-05-31 07:40] VITALS: BP 115/78
[2020-05-31] MEDS: SODIUM CHLORIDE FLUSH 10ML SYR IVF SCH ×2 (09:24→20:06)
[2020-05-31] MEDS: INSULIN GLARGINE 100 UNITS/ML, PEN SQ-INSULIN SCH (09:24)
[2020-05-31] MEDS: SODIUM BICARBONATE 650 MG TABLET PO SCH ×2 (09:24→20:06)
[2020-05-31] MEDS: ACETAMINOPHEN 325 MG TABLET PO PRN (11:20)
[2020-05-31] MEDS: LOPERAMIDE 2 MG CAPSULE PO SCH ×3 (11:20→20:07)
[2020-05-31 14:08] VITALS: BP 102/68
[2020-05-31 20:12] VITALS: BP 116/79
[2020-06-01] MEDS: INSULIN LISPRO 100 UNITS/ML, PEN SQ-INSULIN SCH ×3 (02:50→11:20)
[2020-06-01] MEDS: HEPARIN 5,000 UNITS/ML, 1ML SQ SCH ×2 (02:50→11:38)
[2020-06-01 02:53] VITALS: BP 106/71
[2020-06-01 03:16] LABS: BASOPHILS % (AUTO) 0 % (0-1); EOSINOPHILS % (AUTO) 1 % (1-7); LYMPHOCYTES % (AUTO) 39 % (22-44); MEAN CORPUSCULAR HEMOGLOBIN 30.3 pg (27.0-34.8); MEAN CORPUSCULAR HGB CONC 33.1 g/dL (32.4-35.8); MEAN PLATELET VOLUME 8.9 fL (7.4-10.4); MONOCYTES % (AUTO) 8 % (2-9); NEUTROPHILS % (AUTO) 52 % (42-75); PLATELET COUNT 424 x10^3/uL (130-400); RED BLOOD COUNT 2.72 x10^6/uL (3.82-5.3); RED CELL DISTRIBUTION WIDTH 15.5 % (9.6-15.2)
[2020-06-01 03:19] LABS: MD NO
[2020-06-01 03:26] LABS: ALANINE AMINOTRANSFERASE 30 U/L (12-78); ALBUMIN 2.2 g/dL (3.4-5.0); ANION GAP 8 mmol/L (5-15); CALCIUM 8.8 mg/dL (8.5-10.1); CHLORIDE 112 mmol/L (98-107); CREATININE 1.54 mg/dL (0.55-1.02)
[2020-06-01 03:29] LABS: ALKALINE PHOSPHATASE 155 U/L (45-117); BILIRUBIN,TOTAL 0.3 mg/dL (0.2-1.0); TOTAL PROTEIN 6.5 g/dL (6.4-8.2)
[2020-06-01] MEDS: PANCRELIPASE 24,000 CAPSULE.DR PO SCH ×2 (06:32→11:18)
[2020-06-01] MEDS: NYSTATIN 500,000 UNITS/5 ML UDC PO SCH ×2 (06:32→11:18)
[2020-06-01] MEDS: LOPERAMIDE 2 MG CAPSULE PO SCH ×2 (06:33→11:18)
[2020-06-01 07:07] VITALS: BP 114/75
[2020-06-01] MEDS ORDERED: HYDR-826 PO (07:20)
[2020-06-01] MEDS ORDERED: INSU100I11 SQ-INSULIN (07:20)
[2020-06-01] MEDS ORDERED: LIPA1CAP61 PO (07:20)
[2020-06-01] MEDS ORDERED: LOPE2CAP PO (07:20)
[2020-06-01] MEDS ORDERED: INSU100I13 SQ-INSULIN (07:20)
[2020-06-01] MEDS ORDERED: MAGNESIUM SULFATE PMX 4GM/100M 100 ML IVPB ONE (07:30)
[2020-06-01] MEDS: SODIUM BICARBONATE 650 MG TABLET PO SCH (07:50)
[2020-06-01] MEDS: INSULIN GLARGINE 100 UNITS/ML, PEN SQ-INSULIN SCH (07:52)
[2020-06-01] MEDS: SODIUM CHLORIDE FLUSH 10ML SYR IVF SCH (07:52)
== END 2020-06-01 12:53 | disposition home health service (06) | DRG 637 ==
LOC: ED 16:11 → EDIP 17:13 → CCU 17:50 → 3N 05-26 18:03
PROVIDERS: ADMIT Internal Medicine; ATTEND Hospitalist
PROC: 02H633Z Insertion of Infusion Device into Right Atrium, Percutaneous Approach (ICD-10-PCS; 2020-05-21)
PROC: 0T9B70Z Drainage of Bladder with Drainage Device, Via Natural or Artificial Opening (ICD-10-PCS; principal; 2020-05-22)
PROC: 02HV33Z Insertion of Infusion Device into Superior Vena Cava, Percutaneous Approach (ICD-10-PCS; 2020-05-22)
PROC: B548ZZA Ultrasonography of Superior Vena Cava, Guidance (ICD-10-PCS; 2020-05-22)
PROC: 0W9J3ZZ Drainage of Pelvic Cavity, Percutaneous Approach (ICD-10-PCS; 2020-05-23)
DX: E11.10 Type 2 diabetes mellitus with ketoacidosis without coma (principal); E43 Unspecified severe protein-calorie malnutrition; N17.0 Acute kidney failure with tubular necrosis; E87.1 Hypo-osmolality and hyponatremia; Z68.1 Body mass index [BMI] 19.9 or less, adult; M87.822 Other osteonecrosis, left humerus; M87.821 Other osteonecrosis, right humerus; E72.20 Disorder of urea cycle metabolism, unspecified; K86.1 Other chronic pancreatitis; K92.2 Gastrointestinal hemorrhage, unspecified; B37.0 Candidal stomatitis; N18.30 Chronic kidney disease, stage 3 unspecified; I12.9 Hypertensive chronic kidney disease with stage 1 through stage 4 chronic kidney disease, or unspecified chronic kidney disease; E83.42 Hypomagnesemia; E87.5 Hyperkalemia; E11.22 Type 2 diabetes mellitus with diabetic chronic kidney disease; D72.823 Leukemoid reaction; E87.8 Other disorders of electrolyte and fluid balance, not elsewhere classified; E07.81 Sick-euthyroid syndrome; Z90.49 Acquired absence of other specified parts of digestive tract; Z93.2 Ileostomy status; Z81.8 Family history of other mental and behavioral disorders; Z83.49 Family history of other endocrine, nutritional and metabolic diseases; Z79.899 Other long term (current) drug therapy; Z91.14 Patient's other noncompliance with medication regimen; Z86.73 Personal history of transient ischemic attack (TIA), and cerebral infarction without residual deficits
CPT/HCPCS: 36415; 36573; 36600; 49405; 49406; 71045; 74176; 76856; 80048; 80053; 81001; 82010; 82140; 82272; 82306; 82330; 82533; 82607; 82728; 82803; 82947; 82962; 83036; 83540; 83550; 83690; 83735; 83930; 83970; 84100; 84134; 84439; 84443; 84478; 84481; 85014; 85018; 85025; 87040; 87070; 87075; 87081; 87205; 87324; 88112; 88305; 93005; 93306; 96374; 99156; 99157; 99291; G0378; J0610; J0696; J1644; J1756; J1815; J2250; J2405; J3010; J3411; J3475; J3480; C1751; C9113; J2060; J2270; J2310; J3420; J7030; J7040; Q0177